=== PATIENT | female | born 1960 | race Caucasian/White ===

== ENCOUNTER 2020-06-08 06:33 | Outpatient (REF) | payer BC, SELFPAY | END 2020-06-08 06:34 | disposition home or self-care (01) | LOC: HO.LAB 06:33 | PROVIDERS: Visit Provider Internal Medicine | DX: Z20.828 Contact with and (suspected) exposure to other viral communicable diseases (principal) | CPT/HCPCS: C9803; U0003 ==

== ENCOUNTER → 2022-03-28 12:59 | Outpatient (BNVA) | payer BC, SELFPAY | PROVIDERS: PCP Internal Medicine; Visit Provider Hospitalist | DX: J45.909 Unspecified asthma, uncomplicated (principal); R05.3 Chronic cough; R06.00 Dyspnea, unspecified; J44.9 Chronic obstructive pulmonary disease, unspecified; K44.9 Diaphragmatic hernia without obstruction or gangrene | CPT/HCPCS: 94640 ==

== ENCOUNTER 2022-03-29 11:37 | Outpatient (REF) | payer BC, SELFPAY ==
--- NOTE | ~2022-03-29 | XR_ITS ---
EXAMINATION: XR CHEST 2 VIEWS CLINICAL INFORMATION: Dyspnea. COMPARISON: None. TECHNIQUE: Frontal and lateral views of the chest were obtained. FINDINGS: The heart, great vessels, pulmonary vasculature and mediastinum are normal. The lungs show no focal infiltrate, effusion or pneumothorax. There is mild elevation of the right hemidiaphragm. There is no acute osseous abnormality. Orthopedic anchors are applied to the right humeral head. XR/XR chest 2V IMPRESSION: No active cardiopulmonary disease.
[2022-03-29 12:13] LABS: MANUAL DIFF FLAG NO
[2022-03-29 12:37] LABS: Basophils Absolute Auto 0.1 X10*3/uL (0.0-0.2); Basophils Percent Auto 0.7 % (0-2); Eosinophils Absolute Auto 0.2 X10*3/uL (0.0-0.4); Hematocrit 43.1 % (37.0-47.0); Hemoglobin 15.2 g/dl (12.0-16.0); Imm Gran Abs Auto 0.03 X10*3/uL (0.00-0.03); Imm Gran Pct Auto 0.4 % (0.0-0.4); Lymphocytes Absolute Auto 2.1 X10*3/uL (1.2-4.9); Lymphocytes Percent Auto 30.6 % (20-40); Mean Corpuscular HGB Conc 35.3 g/dl (31.0-35.0); Mean Corpuscular Hemoglobin 32.1 pg (27.0-33.0); Mean Corpuscular Volume 90.9 fL (80.0-98.0); Mean Platelet Volume 9.4 fL (9.4-12.3); Monocytes Absolute Auto 0.6 X10*3/uL (0.1-1.2); Monocytes Percent Auto 8.7 % (2-11); Neutrophils Absolute Auto 3.8 x10*3/uL (2.0-8.3); Neutrophils Percent Auto 56.6 % (45-73); Platelet Count 218 X10*3/uL (160-400); Red Blood Count 4.74 X10*6/uL (4.20-5.50); Red Cell Distribution Width 11.2 % (11.0-16.0); White Blood Count 6.8 X10*3/uL (4.8-10.8)
[2022-03-29 14:00] LABS: Erythrocyte Sedimentation Rate 5 MM/HR (0-20)
[2022-04-02 00:57] LABS: IgA 129 mg/dL (47-310); IgG 878 mg/dL (600-1640); IgM 85 mg/dL (50-300)
[2022-04-02 04:36] LABS: Alpha 1 Anti-trypsin 125 mg/dL (83-199)
== END 2022-03-29 11:38 | disposition home or self-care (01) ==
LOC: HO.XRAY 11:37
PROVIDERS: PCP Internal Medicine; Visit Provider Hospitalist
DX: J45.909 Unspecified asthma, uncomplicated (principal); R05.3 Chronic cough; R06.00 Dyspnea, unspecified
CPT/HCPCS: 36415; 71046; 82103; 82784; 82785; 85025; 85652; 86003

== ENCOUNTER 2022-04-22 07:59 | Outpatient (REF) | payer BC, SELFPAY ==
--- NOTE | 2022-04-22 10:08 | PFT_ITS ---
Forced vital capacity 90%, FEV1 86%. FEV1/FVC ratio is 74. [id number] is 67% and MVV 92%. Post bronchodilator therapy, there is no significant change. Total lung capacity 91%. Residual volume 76%. Diffusion capacity 87%. CONCLUSION: There is very mild degree of small airway obstructive disorder. Otherwise, this pulmonary function test is within normal limits. Clinical correlation recommended. MD LUIGI Coffey/TABATHA / [id number]
== END 2022-04-22 08:00 | disposition home or self-care (01) ==
LOC: HO.RESP 07:59
PROVIDERS: PCP Internal Medicine; Visit Provider Hospitalist
DX: R06.00 Dyspnea, unspecified (principal); R05.3 Chronic cough; J45.909 Unspecified asthma, uncomplicated
CPT/HCPCS: 94060; 94727; 94729